=== PATIENT | male | born 1955 | race Caucasian/White ===

== ENCOUNTER 2017-08-31 18:40 | Observation (INO) | payer BC ==
--- NOTE | 2017-08-31 19:56 | ED ---
Neurological HPI - HPI Summary HPI Summary: This is candy Gamboa documenting for attending physician Lucian Simon M.D. Pt is a 62 y/o male who presents to [facility] c/o generalized weakness since 18:30 today. He has a PMHx of myasthenia gravis. Pt states today he suddenly had a MG crisis while visiting his mother upstairs from [place] for CVA. He states he couldnt keep his head up, open his eyes, or get out of his chair. Pt does not take medications for his MG. He denies any N/V. Pt also c/o respiratory distress. He describes his pain level as 2/10, and is aching. Pt is a former smoker. - History of Current Complaint Chief Complaint: EDWeakness Stated Complaint: WEAKNESS Time Seen by Provider: 08/31/17 19:19 Hx Obtained From: Patient Onset/Duration: Sudden Onset, Started hours ago - 18:30, Still Present Timing: Constant Current Severity: Moderate Neurological Deficit Location: Generalized Pain Intensity: 6 Pain Scale Used: 0-10 Numeric Character: Weak, Motor Weakness, Other: - Difficulty breathing Aggravating: Nothing Alleviating: Nothing Related Hx: Medication Non-Comliant - No medications for myasthenia gravis - Allergy/Home Medications Allergies/Adverse Reactions: Allergies Allergy/AdvReac Type Severity Reaction Status Date / Time No Known Allergies Allergy Verified 08/31/17 19:04 Home Medications: Home Medications Icosapent Ethyl [Vascepa] 1 gm PO BID 08/31/17 [History Confirmed 08/31/17] Lisinopril TAB* [Prinivil TAB*] 10 mg PO DAILY 08/31/17 [History Confirmed 08/31] Rosuvastatin (NF) [Crestor (NF)] 20 mg PO QPM 08/31/17 [History Confirmed ] Sertraline* [Zoloft*] 50 mg PO BEDTIME 08/31/17 [History Confirmed 08/31/17] metFORMIN* [Glucophage 1000 MG TAB *] 1,000 mg PO BID 08/31/17 [History Confirmed 08/31/17] traZODone TAB* [Desyrel TAB*] 100 mg PO BEDTIME 08/31/17 [History Confirmed ] PMH/Surg Hx/FS Hx/Imm Hx Endocrine/Hematology History: Reports: Hx Diabetes - Type 2 Cardiovascular History: Reports: Hx Hypercholesterolemia, Hx Hypertension Neurological History: Reports: Other Neuro Impairments/Disorders - Myasthenia Gravis - Immunization History Immunizations Up to Date: Yes Infectious Disease History: No Infectious Disease History: Denies: Traveled Outside the [place] in Last 30 Days - Family History Known Family History: Positive: Diabetes - Social History Alcohol Use: None Substance Use Type: Reports: None Smoking Status (MU): Former Smoker Review of Systems Positive: Other - Difficulty breathing Negative: Vomiting, Nausea Neurological: Other - Muscle weakness All Other Systems Reviewed And Are Negative: Yes Physical Exam - Summary Physical Exam Summary: VITAL SIGNS: Reviewed. GENERAL: Patient is a well-developed and nourished MALE who is lying comfortable in the stretcher. Patient is not in any acute respiratory distress. HEAD AND FACE: No signs of trauma. No ecchymosis, hematomas or skull depressions. No sinus tenderness. EYES: PERRLA, EOMI x 2, No injected conjunctiva, no nystagmus. EARS: Hearing grossly intact. Ear canals and tympanic membranes are within normal limits. MOUTH: Oropharynx within normal limits. NECK: Supple, trachea is midline, no adenopathy, no JVD, no carotid bruit, no c- spine tenderness, neck with full ROM. CHEST: Symmetric, no tenderness at palpation LUNGS: Clear to auscultation bilaterally. No wheezing or crackles. CVS: Regular rate and rhythm, S1 and S2 present, no murmurs or gallops appreciated. ABDOMEN: Soft, non-tender. No signs of distention. No rebound no guarding, and no masses palpated. Bowel sounds are normal. EXTREMITIES: FROM in all major joints, no edema, no cyanosis or clubbing. NEURO: Alert and oriented x 3. No acute neurological deficits. Speech is normal and follows commands. SKIN: Dry and warm Triage Information Reviewed: Yes Vital Signs On Initial Exam: Initial Vitals Temp Pulse Resp BP Pulse Ox 99.0 F 89 20 150/81 96 08/31/17 18:44 08/31/17 18:44 08/31/17 18:44 08/31/17 18:44 08/31/17 18:44 Vital Signs Reviewed: Yes Diagnostics - Vital Signs Vital Signs Temp Pulse Resp BP Pulse Ox 08/31/17 19:25 82 28 137/79 94 08/31/17 19:00 84 22 96 08/31/17 18:55 83 18 138/85 96 08/31/17 18:44 99.0 F 89 20 150/81 96 - Laboratory Result Diagrams: 08/31/17 20:03 08/31/17 21:13 Lab Statement: Any lab studies that have been ordered have been reviewed, and results considered in the medical decision making process. - Radiology CXR Xray Interpretation: No Acute Changes - No acute changes. Radiology Interpretation Completed By: ED Physician - EKG 19:56 Cardiac Rate: NL - 79 bpm EKG Rhythm: Sinus Rhythm EKG Interpretation: Normal axis. Normal interval. No ischemic changes. Course/Dx - Course Course Of Treatment: Pt is a 62 y/o male who presents to [facility] c/o generalized weakness since 18:30 today. He has a PMHx of myasthenia gravis. Pt states today he suddenly had a MG crisis: he couldnt get out of his chair. Pt does not take medications for his MG. He denies any N/V. Pt also c/o respiratory distress. A physical exam was normal. A CXR was negative. An EKG revealed normal rate at 79 bpm, Normal axis. Normal interval. No ischemic changes. Final dx is myasthenia gravis. At 21:00 Dr. Mosher will see the pt in the ED. Kraig POOLE who pt for admission at 22:35. Pt will be admitted and is agreeable with this plan. - Diagnoses Provider Diagnoses: Myasthenia gravis - Physician Notifications Discussed Care Of Patient With: Surya Mosher Time Discussed With Above Provider: 21:00 Instructed by Provider To: Other - Dr. Mosher will see pt in ED. At 22:35 spoke to Kraig POOLE who accepts pt for admission. Discharge - Sign-Out/Discharge Documenting (check all that apply): Patient Departure - Admit, Sign-Out Patient Signing out patient TO: Kraig Beach - Discharge Plan Condition: Stable Disposition: ADMITTED TO [facility] Referrals: No Primary Care Phys,NOPCP [Primary Care Provider] -
[2017-08-31 20:11] LABS: ABS Basophils 0 10^3/ul (0-0.2); ABS Eosinophils 0 10^3/ul (0-0.6); ABS Lymphocytes 1.5 10^3/ul (1.0-4.8); ABS Monocytes 0.5 10^3/ul (0-0.8); ABS Neutrophils 3.2 10^3/ul (1.5-7.7); ABS Nucleated RBC 0 10^3/ul; Eosinophil % 0.6 % (0-6); Hematocrit 37 % (42-52); Hemoglobin 12.9 g/dl (14.0-18.0); Mean Corpuscular HGB Conc 35 g/dl (31-36); Mean Corpuscular Hemoglobin 29 pg (27-31); Mean Corpuscular Volume 82 fL (80-94); Mean Platelet Volume 6.9 um3 (7.4-10.4); Nucleated Red Blood Cells % 0.1; Platelet Count 185 10^3/ul (150-450); Red Blood Count 4.49 10^6/ul (4.00-5.40); Red Cell Distribution Width 15 % (10.5-15); White Blood Count 5.3 10^3/ul (3.5-10.8)
[2017-08-31 20:27] LABS: INR 0.9 (0.77-1.02)
[2017-08-31 20:29] LABS: EGFR Non-African American 82.9 (>60)
[2017-08-31] MEDS ORDERED: NS 0.9% 1000 ML* 1,000 ML IV ONE (20:54)
[2017-08-31] MEDS ORDERED: Pyridostigmine TAB* 60 MG PO ONE (22:40)
[2017-08-31] MEDS ORDERED: Ondansetron INJ* 2 MG/ML VIAL IV PRN (23:19)
[2017-08-31] MEDS ORDERED: Dextrose 50% Syringe 50 ML* 25 GM/50 ML SYRINGE IV PUSH PRN (23:19)
[2017-08-31] MEDS ORDERED: Acetaminophen TAB* 325 MG PO PRN (23:19)
[2017-09-01] MEDS ORDERED: Sertraline* 50 MG TAB PO SCH (01:35)
[2017-09-01] MEDS ORDERED: traZODone TAB* 100 MG PO SCH (01:35)
[2017-09-01] MEDS: Pyridostigmine TAB* 60 MG PO SCH ×2 (01:43→09:13)
--- NOTE | 2017-09-01 03:44 | HP ---
CC: Dr. Ray, [place] * HISTORY AND PHYSICAL: DATE OF ADMISSION: 08/31/17 PRIMARY CARE PROVIDER: Dr. Ray from [place], their phone number is . CONSULTING NEUROLOGIST: Dr. Mosher. MY ATTENDING PHYSICIAN WHILE IN THE HOSPITAL: Dr. Tyshawn Malik MD * ( report dictated by Abena Beach NP). CHIEF COMPLAINT: Weakness. HISTORY OF PRESENT ILLNESS: Mr. Tubbs is a 62-year-old male patient. He has a history of myasthenia gravis, diabetes, depression, hypertension, hyperlipidemia , history of CVA, history of pancreatitis and vertigo. He is visiting from the [place] area. He is coming up visiting his mother. He was in the room today. She recently had a stroke. Unfortunately, he has been under a lot of stress. He says he drove up on Thursday with only 4 hours of sleep to get here to see his mother, that is when she had her stroke. He does note that he was very tired. He slept good yesterday and today he was concerned. He was in the room with his mother. She was being combative with him. This was disheartening to him. He suddenly developed feeling weak in his shoulders, in his biceps, and in his thighs. His head tilted down. He could not get his head to come up. He is having trouble just opening his eyes. He says this is typical when he has a crisis. The CAT call was called upstairs and he was brought emergently down here in the ER to be stabilized. He denies any recent change in medications. He does state that he was on methadone at one point, he said it helped for about a week. He does state that he also has weakness to his left thigh. He states that he has not had any chest pain or any fevers. There has been no nausea or vomiting. He says that he is currently not on any medications for the myasthenia. He says IVIg he could not tolerate the treatment for it. He came into the ER today to evaluate and there was concern for the myasthenia crisis. Dr. Mosher was brought to the bedside who evaluated the patient and we were asked to evaluate for admission. PAST MEDICAL HISTORY: Significant for: 1. Myasthenia gravis. 2. Diabetes. 3. Depression. 4. Hypertension. 5. Hyperlipidemia. 6. History of CVA. 7. Vertigo. 8. Pancreatitis. PAST SURGICAL HISTORY: 1. The patient has had cataract extraction. 2. He has had left knee replacement. 3. He has had bilateral knee arthroscopies. 4. Appendectomy. 5. Right wrist surgery. 6. Laminectomy. 7. He has had left and right total hip replacements. HOME MEDICATIONS: According to his list include: 1. Insulin degludec 16 units subcu at bedtime. 2. Lisinopril 20 mg daily. 3. Vascepa 1 g p.o. b.i.d. 4. Trazodone 100 mg p.o. daily. 5. Crestor 20 mg daily. 6. Metformin 1000 mg p.o. b.i.d. 7. Zoloft 50 mg p.o. at bedtime. ALLERGIES TO MEDICATIONS: Include no known drug allergies. FAMILY HISTORY: His mother had a history of CVA. Father had a history of cancer. SOCIAL HISTORY: The patient does not smoke. He does not drink. Surrogate decision maker is his . REVIEW OF SYSTEMS: There is no documented fever. He is denying having any significant weight change. There is no double vision. He is denying having any ear discharge. There was no rhinorrhea. There is no sore throat, no thyroid enlargement. Denied having any chest pain. There was no orthopnea. There was no nocturnal dyspnea. He denies having any abdominal pain. There has been no nausea, no vomiting. There has been no dysuria, no frequency. No seizure. He denied any loss of consciousness. No pruritus and no skin ulcerations. Review of 14 systems completed, all others negative. PHYSICAL EXAMINATION GENERAL: At this time, Mr. Tubbs is a 62-year-old male patient. He is sitting in the ED stretcher. He appears well nourished, well developed. He does not appear to be in any acute distress. VITAL SIGNS: Blood pressure 147/71, pulse 75, respirations were 24, O2 sat was 96%, temperature 99.0. HEENT: Head is atraumatic, normocephalic. Eyes: EOMs are intact. Sclerae were anicteric and not pale. Throat: Oral mucosa appears to be moist. No oropharyngeal erythema. NECK: Supple. LUNGS: Clear to auscultation bilaterally. No wheezes, rales, or rhonchi. HEART: Sounds S1, S2. He had a regular rate and rhythm. No murmurs, rubs, or gallops. ABDOMEN: Soft, flat, nontender. Bowel sounds were present. EXTREMITIES: Pulses were 2+ throughout. He had good upper strength at this point at 4/5 strength and 4/5 strength in lower extremities. NEUROLOGIC: The patient is awake, he is alert. His speech is clear. His tongue is midline. He had no facial drooping. He did have ptosis noted to the left eye. Otherwise, his cranial nerves were intact. His etholk-vv-[id number] intact bilaterally. While in the room with me, he was able to drink and swallow a cup of orange juice with no difficulty. No other gross focal deficits were noted. SKIN: Intact. LABORATORY DATA/DIAGNOSTIC STUDIES: WBC 5.3, RBC of 4.49, hemoglobin 12.9, hematocrit 37, platelet count of 185. His INR was 0.90. His blood gas revealed a pH of 742, pCO2 of 35, bicarb of 23.9. Sodium was 137, potassium was 3.8, chloride 102, bicarb 26, BUN 15, creatinine 0.95, glucose of 219, lactate 2.5, calcium 8.7. Total bili 0.4, AST 19, ALT 25, alk phos 81. CK 81, troponin 0, CRP of 6.34. albumin was 4.1. He had a chest x-ray obtained today, it shows what appears to be a normal chest , no infiltrates or pleural effusions were noted. He did have an EKG obtained today, no previous for comparison, shows a normal sinus rhythm. No ST elevations or T-wave inversions were noted. He did appear to have a left anterior fascicular block, rate of 79. Old medical records were reviewed. ASSESSMENT AND PLAN: Mr. Tubbs is a 62-year-old male patient coming into the emergency room today after a CAT call from the floor for weakness. He was evaluated in the emergency department. There was concern for myasthenia crisis. He was evaluated by Neurology. He will be admitted under observation status for: 1. Myasthenia crisis. At this point, we will get NIFs every 2 hours, forced vital capacities every 2 hours. Swallowing function appears to be intact for me. He is not having any drooling at this point. He ank a whole cup of orange juice in front of me while interviewing him so that is reassuring. We will get him on methadone 60 t.i.d. per the recommendation of Dr. Mosher. We will get neuro checks every 2 hours. In addition to this, Neurology had been to see him and I will try to get his notes from his neurologist, Dr. Capellan, number there is [phone] and I will again touch base with them tomorrow and try to get records and we will continue to follow. 2. Diabetes. We will go ahead and put him on a lispro sliding scale and continue his long-acting insulin. 3. Depression. Continue with supportive care. 4. Hypertension. Continue with lisinopril. 5. History of cerebrovascular accident. Continue with secondary prevention. 6. Hyperlipidemia. Continue statin therapy. 7. DVT prophylaxis. He will be placed on heparin subcu. 8. Code status. Full code. 9. Fluids, electrolytes, and nutrition. He can have a consistent carb diet. TIME SPENT: Time spent on the admission was 60 minutes, greater than half the time was spent [id number] with the patient obtaining my history and physical, other half time was spent going over the plan of care with the patient and implementing the plan of care. I did discuss the plan of care with my attending, Dr. Malik, he is in agreement. ABENA BEACH NP [id number]/[facility] #: [id number] MADHU
--- NOTE | 2017-09-01 04:41 | CONS ---
NEUROLOGY CONSULTATION REPORT: DATE OF CONSULT: 08/31/17 CONSULTING PHYSICIAN: Lucian Simon MD I was contacted by Dr. Lucian Simon to emergently evaluate Mr. Tyler Tubbs for suspected myasthenia gravis exacerbation. CHIEF COMPLAINT: Generalized fatigue and droopiness of the eyes. HISTORY OF PRESENT ILLNESS: Mr. Delmar Tubbs is a 62-year-old right-handed man, who lives in [place], who drove from [place] to [place] to visit his mother today , who I am currently taking care of Mrs. Tubbs. Mrs. Tubbs had a hemorrhagic stroke. Mr. Tubbs saw the patient this morning and at 12 o'clock., His mother' s condition caused him to be stressed out. He developed generalized fatigue at that point. He went downstairs to have lunch and had no trouble swallowing. He came back and saw his mother requiring mittens because she was combative and agitated. That got him extremely upset and emotional. He then noticed trouble opening his left eye and was having trouble speaking. The fatigue had progressed to a point where he was having trouble lifting his legs. He denied double vision. He denied shortness of breath. The patient apparently has a history of seronegative myasthenia gravis diagnosed April of [address] Capellan in [place], [place]. He was put on Mestinon for a few weeks. He thought Mestinon helped with his ptosis, but he stopped taking Mestinon as he did not think it helped with his fatigue. His last exacerbation was February of 2017 which lasted 6 months. Exacerbation seems to be worsened in the setting of any medical condition or stressors. For instance, he had recent knee surgery, which seemed to have worsened his myasthenia gravis following surgery. He has never received any plasma exchange or steroids. He has tried IVIG for a few days, but that was stopped because he had worsening weakness and aseptic meningitis. The patient had a negative inspiratory forced pressure done by Respiratory Therapy that was recorded as negative 15 but after re-encouragement and sitting the patient up, he was able to score negative 20. PAST MEDICAL HISTORY: Diabetes mellitus type 2, hypertension, dyslipidemia. PAST SURGICAL HISTORY: Appendectomy; rebuild of the wrist; laminectomy, L3-L4; left hip replacement; meniscal surgery. MEDICATIONS: 1. Metformin 1000 mg by mouth twice daily. 2. Sertraline 50 mg by mouth at bedtime. 3. Lovastatin 20 mg by mouth at p.m. 4. Trazodone 100 mg p.o. at bedtime. 5. Lisinopril 10 mg p.o. daily. ALLERGIES: No known drug allergies. FAMILY HISTORY: Mother had a stroke. Father of cancer. SOCIAL HISTORY: The patient is a reproducer and a commercial litigation paralegal. REVIEW OF SYSTEMS: A 14-point review of systems was obtained and reviewed; otherwise, negative except for what was mentioned in the HPI. PHYSICAL EXAM: Vitals: Temperature 99.0, pulse rate of 73, respiratory rate of 25, oxygen saturation of 96, blood pressure of 147/71. General: Well- nourished, well-developed man, in no acute distress. He is cooperative. Head: Atraumatic and normocephalic without any obvious abnormalities. He has no lymphadenopathy. Eyes: Conjunctivae/corneas are clear with no scleral icterus. Neck: Supple and symmetric with no carotid bruits. Lungs: Clear to auscultation bilaterally with nonlabored breathing. Cardiovascular: Regular rhythm. Normal S1, S2. Radial pulses are palpable. Extremities: Normal range of motion with no cyanosis. Skin: No skin lesions or lacerations. Psych : Affect is broad and seems to have depressed mood. Otherwise, he is easy to establish rapport. Neurological Examination: Mental status, awake and alert, oriented to person, place, time, and general circumstances. His speech is slow , but language including expression, naming, repetitions, comprehensions were assessed and found to be normal. Cranial Nerves: Normal confrontation testing. He does have left ptosis that does not fluctuate or fatigue after 1 minute of upgaze. There is negative curtain sign. He does have weakness to eyelid closure as well as tongue weakness. Sensation is intact on the forehead , cheeks and jaw region bilaterally. He has no facial asymmetry. He is able to hear the whole history process and symmetrical palate elevation. Normal strength against shoulder shrug and the tongue is symmetrical and midline with no atrophy or fasciculations. Motor Examination: No abnormal movements. No pronator drift. Normal bulk and tone throughout. He has effort dependent reduced activation of the shoulder abduction and hip flexion region; otherwise, 5/5 strength throughout the upper and lower extremities. Reflexes right over left with brachioradialis 1/1, biceps 1/1, triceps 1/1, patella 2/1, ankle 1/1, plantar flexor/flexor. Sensation is intact to light touch throughout. Normal vibration and proprioception at the great toes. Coordination normal finger-to- nose and rapid alternating movement. Gait: Wide based, antalgic cautionary gait, but did not require any assistance. DIAGNOSTIC STUDIES/LAB DATA: WBC of 5.3, hemoglobin of 12.9, hematocrit of 37. Lactic acid of 2.5, glucose of 219. Sodium of 137, chloride of 102, potassium TMP. There was no intracranial imaging done. The patient had electrocardiogram that showed normal sinus rhythm with a rate of 79. The blood gas results that were obtained at 8:30 p.m. showed a pH of 7.42, pCO2 of 35, pO2 of 72, and bicarb of 23, oxygen saturation to 96. ASSESSMENT: 1. Mr. Tyler Tubbs is a 62-year-old male with history of hypertension, dyslipidemia, and diabetes, who has a reported history of seronegative myasthenia gravis. The patient follows up with Dr. Capellan in [place], [place]. The patient presented today due to sudden onset of generalized fatigue and ptosis after he witnessed his mother in the hospital. The patient is stressed out. He has subtle signs to suggest possible myasthenia gravis diagnosis such as ptosis and mild bulbar weakness but no evidence of myasthenia gravis. However, his risk of developing respiratory insufficiency is unlikely as he appears comfortable and was able to walk around about 150 feet without any shortness of breath. The low negative inspiratory forced pressures are likely due to poor seal around the device or selective reduced muscle activation. The patient feels comfortable and did not complain of shortness of breath. RECOMMENDATIONS: Start Mestinon 60 mg by mouth 3 times daily. Please consult PT and ENTERPR[employer]OUD ARCHITECT for further evaluation. Please obtain records from Dr. Capellan in [place]. I contacted Dr. Capellan and left a message. The patient will not respond well to IVIG. Steroids may worsen his current state, hence we did not recommend any steroids. He does not have any significant motor or respiratory deficits to consider plasma exchange. He does not need any ICU admission as he has no evidence of respiratory insufficiency at this point.Please check the negative inspiratory force pressure every 2 hours for the next 8 hours. Transfer patient to ICU only if he develops shortness of breath or the NIFs continue to drop below -15. Neuro checks every 4 hours. TIME SPENT: I spent a total of 70 minutes and greater than 50% of that was spent directly reviewing the medical chart, obtaining history, examining the patient, education, and counseling and discussing the treatment plan and prognosis with the primary team. I discussed this case with Kraig Beach and Dr. Lucian Simon. Please prevent any use of antibiotics, beta-blockers, or magnesium as the patient has underlying myasthenia gravis. This can worsen his condition and put him in a crisis. [id number]/[facility] #: [id number] MTDD
[2017-09-01] MEDS ORDERED: Heparin VIAL(*) 5000 UNITS/ML VIAL (FIVE THOUSAND) SUBCUT SCH (06:00)
[2017-09-01] MEDS ORDERED: Insulin LISPRO* 1 UNITS UNIT SUBCUT SCH (07:30)
--- NOTE | 2017-09-01 07:58 | RAD ---
Indication: Shortness of breath, weakness, respiratory distress, headache. Comparison: No prior exams available on the [facility] PACS for comparison. Technique: Upright AP 2010 hours Report: Periphery of the RIGHT costophrenic angle is partially obscured on a technical basis. The visualized lungs and pleural spaces are clear. LEFT epicardial fat pad noted. Upper normal heart size. Unremarkable central pulmonary vasculature and mediastinal contours. IMPRESSION: #. No evidence for acute intrathoracic disease. R0
[2017-09-01] MEDS ORDERED: Lisinopril TAB* 10 MG PO SCH ×2 (09:00)
[2017-09-01 09:09] VITALS: BP 121/52
--- NOTE | 2017-09-01 14:20 | PN ---
NEUROLOGY PROGRESS NOTE: DATE OF SERVICE: 09/01/17 PRIMARY PROVIDER: Dr. Villatoro Neurology is following for the evaluation of possible myasthenia gravis exacerbation. SUBJECTIVE: The patient is feeling well this morning. He is able to walk around independently. He has no double vision, slurred speech, or shortness of breath. His strength has improved. He is requesting to go home/hotel that he has booked. REVIEW OF SYSTEMS: The patient denied any chest pain, shortness of breath, or palpitations. The patient denied any headaches or visual disturbance. MEDICATIONS: 1. Acetaminophen 650 mg p.o. every 4 hours as needed for fever or pain. 2. Lipitor 40 mg at night. 3. Lisinopril 10 mg daily. 4. Ondansetron 4 mg IV every 6 hours as needed for nausea. 5. Mestinon 60 mg p.o. every 8 hours scheduled. 6. Zoloft 50 mg p.o. at bedtime. 7. Trazodone 100 mg p.o. at bedtime. PHYSICAL EXAMINATION: Vitals: Temperature of 99.6, pulse rate of 61, respiratory rate of 17, oxygen saturation 95, blood pressure of 121/52. General : The patient is well-nourished, well-developed, in no acute distress. He is cooperative with examiner. Head: Normocephalic, atraumatic without any obvious abnormalities. Eyes: Conjunctivae/corneas are clear with no scleral icterus. Neck is supple and symmetrical with no carotid bruits. No lymphadenopathy. Lungs are clear to auscultation bilaterally with nonlabored breathing. Cardiovascular: Regular rate and rhythm. Normal S1, S2. Radial pulses are palpable. Extremities: Normal range of motion with no cyanosis. Skin: No skin lesion or lacerations. Psych: Affect is broad and normal mood. Easy to establish a rapport. Neurologic Examination: Mental status; awake and alert, oriented to person, place, and time and general circumstances. He has no dysarthria or aphasia. Cranial Nerves: Pupils are equal, round, reactive to light. Extraocular muscles are intact. Normal facial asymmetry. Tongue is symmetrical and midline. He had good tongue and eyelid closure strength with no fatigable ptosis. Motor: No abnormal movements or pronator drift. Normal bulk and tone. 5/5 strength in the upper and lower extremities bilaterally and symmetrically. Reflexes 2+ in the upper extremities and 1+ in the lower extremity with flexor plantar response bilaterally. Sensation is intact to light touch throughout. Coordination: Normal aaczdu-uh-jzyj and nzag-mg-jwjj testing bilaterally. Gait: Narrow based and normal station and gait. No ataxia. LABORATORY DATA: No new laboratory data was obtained today except for point of care glucose is 188. ASSESSMENT AND PLAN: Tyler Tubbs is a 62-year-old man with history of seronegative myasthenia gravis, who presented from [place] to visit his mother who is currently hospitalized at [facility] for stroke. The patient appeared to have had an acute stress reaction when he saw his mother in her current medical condition. I do not think the patient had myasthenia gravis exacerbation. He was started on Mestinon yesterday, which seemed to be helping with his chronic ptosis and generalized fatigue. I informed the patient that he can wean himself of Mestinon if he feels better or continue the current dose until he follows up with his Neurologist, Dr. Capellan in [place], [place]. We have requested records from Dr. Capellan. The patient would like to be discharged home today as he feels back to his normal self. The patient denied any shortness of breath or swallowing difficulty. The negative inspiratory pressures obtained yesterday that were abnormal are likely related to poor feel or reduced activation due to lack of effort. I do not suspect the patient is in any respiratory distress as he is able to walk around with no assistance and was not short of breath. The patient agreed to be discharged today and to follow up with Dr. Capellan in 2-4 weeks. [id number]/[facility] #: [id number] MADHU
[2017-09-01] MEDS ORDERED: Atorvastatin* 40 MG TAB PO SCH (18:00)
[2017-09-01] MEDS ORDERED: Insulin GLARGINE(*) 1 UNITS UNIT SUBCUT SCH (21:00)
--- NOTE | 2017-09-02 09:26 | DS ---
CC: Dr. Margarita Capellan, phone # [phone], [place], [place]; Dr. Imelda Ray , phone #[phone]. * DISCHARGE SUMMARY: DATE OF ADMISSION: DATE OF DISCHARGE: 09/01/17 PRIMARY CARE PROVIDER: Dr. Imelda Ray. NEUROLOGIST: Dr. Margarita Capellan DISCHARGE DIAGNOSIS: Possible myasthenia gravis exacerbation. SECONDARY DIAGNOSES: 1. Myasthenia gravis. 2. Type 2 diabetes. 3. Depression 4. Hypertension. 5. Hyperlipidemia. 6. History of cerebrovascular accident. 7. Vertigo. 8. Pancreatitis. MEDICATION LIST: 1. Tresiba 60 units subcutaneously at bedtime. 2. Lisinopril 10 mg p.o. daily. 3. Vascepa 1 g p.o. b.i.d. 4. Trazodone 100 mg p.o. at bedtime. 5. Rosuvastatin 20 mg p.o. at bedtime. 6. Metformin 1000 mg p.o. b.i.d. 7. Sertraline 50 mg p.o. at bedtime. NEW MEDICATION: Pyridostigmine 60 mg p.o. b.i.d. for 5 days, then 60 mg p.o. daily for 5 days, then stop. HOSPITAL COURSE: Mr. Tubbs is a 62-year-old male with a past medical history as stated above, who presented to the emergency room with complaints of weakness. The patient lives in [place] and drove all the way to [place] to visit his mom, who was admitted in the hospital after having a CVA. He states that he drove up straight with only 4 hours of sleep in between and he states that he was very shocked when he saw the condition of his mother. He states that this was very disheartening to him and he suddenly developed feeling of weakness in his shoulders and his neck. He was unable to lift his head or his arms. A clinic assessment team was called and the patient was transferred to the emergency room for further evaluation. For more details about his presentation, I refer you to his history and physical. The patient was seen in consultation by Neurology (Dr. Mosher) and his assessment was that the patient was very stressed out after he witnessed the condition of his mother in the hospital. He had subtle signs to suggest possible myasthenia gravis diagnosis such as ptosis and mild bulbar weakness, but no evidence of myasthenia gravis exacerbation at this point. His risk of developing respiratory insufficiency was deemed unlikely as he appears comfortable and was able to walk around about 150 feet without any shortness of breath. He was found to have low negative inspiratory force pressures, but this was felt to be secondary to poor seal around the device or selective reduced muscle activation. The patient states that he had severe reactions to IVIG in the past and his neurologist is in the process of transitioning him to another subcutaneous medication. Dr. Mosher's recommendation was to observe the patient overnight and start him on Mestinon 60 mg p.o. t.i.d. The next morning the patient was feeling much improved and was anxious for discharge. He really feels that his symptoms were related to the lack of sleep and the stressful situation he was in due to his mother's health issues. He was seen in followup by Dr. Mosher and he was also in agreement that the patient could be discharged from the hospital with a Mestinon taper to follow up with Dr. Capellan in 2 to 4 weeks. PHYSICAL EXAM: Vital Signs: Temperature 98.1, heart rate is 68, respiratory rate is 20, oxygen saturation 97% on room air, blood pressure is 152/78. General: The patient is a pleasant gentleman, sitting up in bed, not in acute distress. CVS: Normal S1, S2. Regular rate and rhythm. Chest: Breath sounds present bilaterally with no added sounds. Neuro: He is alert and oriented x3. Able to move all 4 extremities. No focal neuro deficits. DIET: Heart-healthy, consistent carb diet. ACTIVITY: Activity as tolerated. DISPOSITION: To home. STATUS WHILE IN HOSPITALIZATION: Observation. Please keep in mind this is a summarized version of this patient's hospital stay. If you need more information, please feel free to call me at [phone] or please obtain the full medical records. TIME SPENT: Approximately 45 minutes were spent to complete this discharge. [id number]/[facility] #: [id number] MADHU
== END 2017-09-01 10:20 | disposition home or self-care (01) ==
LOC: ED 18:40 → MED 23:16
PROVIDERS: ADMIT Hospitalist; ATTEND Internal Medicine
DX: G70.00 Myasthenia gravis without (acute) exacerbation (principal); E11.9 Type 2 diabetes mellitus without complications; F32.9 Major depressive disorder, single episode, unspecified; I10 Essential (primary) hypertension; R42 Dizziness and giddiness; E78.5 Hyperlipidemia, unspecified; K85.90 Acute pancreatitis without necrosis or infection, unspecified; Z86.73 Personal history of transient ischemic attack (TIA), and cerebral infarction without residual deficits
CPT/HCPCS: 36415; 71045; 80053; 82550; 82803; 83605; 83880; 84484; 85025; 85610; 86140; 86141; 93005; 96374; 99285; A9270-GY; G0378; J1644